=== PATIENT | male | born 1965 | race Caucasian/White ===

== ENCOUNTER 2017-04-02 11:39 | Inpatient (IN) | payer OTHER ==
[2017-04-02] MEDS ORDERED: SODIUM CHLORIDE 0.9% 1000 ML INFUS.BAG IV PRN (11:53)
[2017-04-02 12:15] LABS: VENOUS BLOOD GAS HCO3 18.7 meq/L (19-25); VENOUS PH 7.38 (7.32-7.42)
[2017-04-02] MEDS ORDERED: ACETAMINOPHEN 1000 MG/100 ML VIAL (NON FORMULARY) IVPB ONE (12:15)
[2017-04-02] MEDS ORDERED: ACETAMINOPHEN INJECTION 100 ML IVPB ONE (12:16)
[2017-04-02 12:20] LABS: MCH 30.5 pg (25.7-33.7); MEAN PLT VOLUME 8.1 fl (7.5-11.1); PLATELET COUNT 406 K/MM3 (134-434); RDW 13.4 % (11.9-15.9); WHITE BLOOD COUNT 23.6 K/mm3 (4.0-10.0)
[2017-04-02 12:36] LABS: URINE APPEARANCE SLCLOUDY; URINE BILIRUBIN NEGATIVE (NEGATIVE); URINE COLOR LTYELLOW; URINE GLUCOSE (UA) 2+ (NEGATIVE); URINE KETONE NEGATIVE (NEGATIVE); URINE NITRITE POSITIVE (NEGATIVE); URINE UROBILINOGEN NEGATIVE E.U./dl (0.2-1.0)
[2017-04-02 12:41] LABS: URINE BLOOD 2+ (NEGATIVE); URINE LEUK ESTERASE 3+ (NEGATIVE); URINE PROTEIN 2+ (NEGATIVE)
[2017-04-02 12:43] LABS: URINE BACTERIA RARE /hpf (NONE SEEN); URINE RBC 1 /hpf (0-3); URINE WBC 208 /hpf (3-5)
[2017-04-02] MEDS ORDERED: CEFTRIAXONE 2 GM in DEXTROSE 5%-WATER - 100 ML IVPB ONE (12:59)
[2017-04-02 13:05] LABS: INR 1.43 (0.82-1.09); PROTHROMBIN TIME (PATIENT) 15.8 SEC (9.98-11.88)
[2017-04-02] MEDS ORDERED: CEFTRIAXONE 100 ML IVPB ONE (13:09)
[2017-04-02 13:10] LABS: ALBUMIN 3.6 g/dl (3.4-5.0); ANION GAP 14 (8-16); CALCIUM 9.6 mg/dL (8.5-10.1); CO2 20 mmol/L (21-32)
--- NOTE | 2017-04-02 13:12 | PDOC ---
History of Present Illness - General Chief Complaint: SIRS, Suspected/Possible Stated Complaint: HIGH BLOOD SUGAR Time Seen by Provider: 04/02/17 11:53 - History of Present Illness Initial Comments: 04/02/17 13:03 CHIEF COMPLAINT: sent in from [facility], shaking, BGM 430 HISTORY OF PRESENT ILLNESS: 49 yo M with hx of unknown development delay was sent in from [facility] for c/o of "shaking" and BGM of 430. On arrival patient states he has no complaints and he "feels fine" but he "drank a lot of water." He denies any cough, sneezing, runny nose, chills, nausea, vomiting, diarrhea, or any urinary symptoms. 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 No recent travel or sick contacts. PAST MEDICAL HISTORY: unable to obtain SOCIAL HISTORY: Lives at home with mother (per staff from [facility]). ALLERGIES: unable to obtain REVIEW OF SYSTEMS - unreliable, patient with unknown development delay PHYSICAL EXAM General Appearance: Well-appearing, appropriately dressed. No apparent distress. HEENT: EOMI, PERRLA, normal ENT inspection, normal voice, TMs normal, pharynx normal. No conjunctival pallor. No photophobia, scleral icterus. Neck: Supple. Trachea midline. No tenderness, rigidity, carotid bruit, stridor , lymphadenopathy, or thyromegaly. Respiratory/Chest: Lungs CTAB. Cardiovascular: RRR. S1, S2. Gastrointestinal/Abdominal: Normal bowel sounds. Abdomen soft, non-distended. No tenderness or rebound tenderness. No organomegaly, pulsatile mass, guarding , hernia, hepatomegaly, splenomegaly. Musculoskeletal/Extremities: Normal inspection. FROM of all extremities, normal capillary refill. Pelvis Stable. No CVA tenderness. No tenderness to extremities, pedal edema, swelling, erythema or deformity. Integumentary: Appropriate color, dry, warm. 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 Fully oriented, alert. Appropriate mood/affect. Motor strength 5/5. No appreciable EOM palsy, facial droop or sensory deficit. Past History - Past Medical History Allergies/Adverse Reactions: Allergies Allergy/AdvReac Type Severity Reaction Status Date / Time No Allergy Information Allergy Verified 04/02/17 11:44 Available Home Medications: Ambulatory Orders Unobtainable [Unobtainable] 04/02/17 Diabetes: Yes - Psycho/Social/Smoking Cessation Hx Suicidal Ideation: No Smoking History: Unknown if ever smoked *Physical Exam - Vital Signs Last Vital Signs Temp Pulse Resp BP Pulse Ox 103.9 F H 105 H 20 137/89 96 04/02/17 11:44 04/02/17 11:44 04/02/17 11:44 04/02/17 11:44 04/02/17 11:44 ED Treatment Course - LABORATORY CBC & Chemistry Diagram: 04/02/17 12:00 04/02/17 12:00 - ADDITIONAL ORDERS Additional order review: Laboratory Results 04/02/17 04/02/17 12:15 12:10 VBG pH 7.38 POC VBG pCO2 32.2 L POC VBG pO2 42.2 Mixed VBG HCO3 18.7 L Urine Color Ltyellow Urine Appearance Slcloudy Urine pH 6.0 Urine Protein 2+ H Urine Glucose (UA) 2+ H Urine Ketones Negative Urine Blood 2+ H Urine Nitrite Positive Urine Bilirubin Negative Urine Urobilinogen Negative Ur Leukocyte Esterase 3+ H Urine RBC 1 Urine WBC 208 Urine Bacteria Rare 04/02/17 12:00 RBC 3.63 L MCV 87.0 MCHC 35.0 RDW 13.4 MPV 8.1 Neutrophils % Y Lymphocytes % Y - RADIOLOGY Radiology Studies Ordered: Category Date Time Status CHEST X-RAY PORTABLE* [RAD] Stat Radiology 04/02/17 11:53 Taken - Medications Given in the ED: ED Medications Discontinued Medications Generic Name Dose Route Start Last Admin Trade Name Freq PRN Reason Stop Dose Admin Acetaminophen 1,000 mg 04/02/17 12:15 04/02/17 12:15 Ofirmev Injection - IVPB 04/02/17 12:16 1,000 mg ONCE ONE Administration Medical Decision Making - Medical Decision Making 04/02/17 13:12 49 yo M with hx of unknown development delay presents to ED with "shaking" and BGM of 430. 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 VS notable for temp of 103.9F and HR of 105. Will order full sepsis workup and r/o DKA. -POC glucose -CBC, CMP, PT/INR, cardiac profile -serum acetone -UA, UCx -EKG, CXR EKG: NSR Labs: WBC 23.6 UA: WBC 208 Lactic acid: 2.5 -Ceftriaxone and Vanc IVPB CXR negative for acute findings. Will admit to hospitalist for UTI, sepsis, hyperglycemia. Discussed case with admitting attending MD Mayo, who accepts patient to inpatient services. *DC/Admit/Observation/Transfer Diagnosis at time of Disposition: Urinary tract infection Sepsis Qualifiers: Sepsis type: sepsis due to unspecified organism Qualified Code(s): A41.9 - Sepsis, unspecified organism - Discharge Dispostion Admit: Yes
[2017-04-02 13:15] LABS: ALK PHOS 92 U/L (45-117); BILIRUBIN,TOTAL 0.7 mg/dL (0.2-1.0); COCKROFT - GAULT 59.57; CREATININE 1.6 mg/dL (0.7-1.3); SGOT/AST 19 U/L (15-37); SGPT/ALT 28 U/L (12-78); TOT PROT 8.1 g/dl (6.4-8.2); TROPONIN I < 0.02 ng/ml (0.00-0.05)
[2017-04-02] MEDS ORDERED: VANCOMYCIN 1,250 MG in DEXTROSE 5%-WATER - 250 ML IVPB ONE (13:18)
[2017-04-02] MEDS ORDERED: SODIUM CHLORIDE 0.9% 500 ML INFUS.BAG IV ONE (13:19)
[2017-04-02 13:20] LABS: GLUCOSE,RANDOM 337 mg/dL (74-106)
--- NOTE | 2017-04-02 13:24 | PDOC ---
[id number] 118/79 98 04/02/17 13:05 04/02/17 12:30 04/02/17 12:30 04/02/17 12:30 04/02/17 12:30 - Physical Exam General Appearance: Yes: Nourished Neck: positive: Trachea midline Respiratory/Chest: positive: Lungs Clear, Other (faint crackles at bila bases) Cardiovascular: positive: Regular Rhythm, Regular Rate. negative: Edema, JVD Vascular Pulses: Dorsalis-Pedis (R): 4+, Doralis-Pedis (L): 4+ Gastrointestinal/Abdominal: positive: Normal Bowel Sounds, Flat, Soft. negative : Tender, Tenderness Musculoskeletal: positive: Normal Inspection. negative: CVA Tenderness Integumentary: positive: Normal Color, Dry, Warm Neurologic: positive: Alert Heart Score/ECG Review - ECG Impressions Normal ECG: Yes Non-specific ST Elevation: No Ischemic Changes: No ED Treatment Course - LABORATORY CBC & Chemistry Diagram: 04/07/17 06:30 04/07/17 06:30 - ADDITIONAL ORDERS Additional order review: Laboratory Results 04/02/17 04/02/17 04/02/17 12:15 12:10 12:00 INR PTT (Actin FS) VBG pH 7.38 POC VBG pCO2 32.2 L POC VBG pO2 42.2 Mixed VBG HCO3 18.7 L Lactic Acid 2.565 H* Urine Color Ltyellow Urine Appearance Slcloudy Urine pH 6.0 Urine Protein 2+ H Urine Glucose (UA) 2+ H Urine Ketones Negative Urine Blood 2+ H Urine Nitrite Positive Urine Bilirubin Negative Urine Urobilinogen Negative Ur Leukocyte Esterase 3+ H Urine RBC 1 Urine WBC 208 Urine Bacteria Rare 04/02/17 12:00 INR 1.43 H PTT (Actin FS) 33.0 VBG pH POC VBG pCO2 POC VBG pO2 Mixed VBG HCO3 Lactic Acid Urine Color Urine Appearance Urine pH Urine Protein Urine Glucose (UA) Urine Ketones Urine Blood Urine Nitrite Urine Bilirubin Urine Urobilinogen Ur Leukocyte Esterase Urine RBC Urine WBC Urine Bacteria 04/02/17 12:00 RBC 3.63 L MCV 87.0 MCHC 35.0 RDW 13.4 MPV 8.1 Neutrophils % Y Lymphocytes % Y - Medications Given in the ED: ED Medications Discontinued Medications Generic Name Dose Route Start Last Admin Trade Name Freq PRN Reason Stop Dose Admin Acetaminophen 1,000 mg 04/02/17 12:15 04/02/17 12:15 Ofirmev Injection - IVPB 04/02/17 12:16 1,000 mg ONCE ONE Administration Medical Decision Making - Medical Decision Making 04/02/17 13:21 49 yo male DM, mental delay attends a day program, here with someone from day program for rigors , fevers. today febrile 103. denies coughing no abd pain. no difficulty eating, no urinary symptoms, does report thirst and drinking a lot of water. no n/v no abd pain. unsure of medications. no cough no travel. on exam awake alert. no complaints. NAD. lungs cTAB no wheeze or crackle. heart RRR no m/r/g. abd soft nontender. no cva tendernss. ext wwp, 2 + peripheral pulses. differential : hypergelycemia, dehydration, dka, pna, uti, plan cxr labs cultures, fever control hydration and repeat sugar. possible insulin. will likely require admission for infection sepsis and hyperglycemia. will contact mother deirdre [phone] [facility] 04/10/17 13:20 *DC/Admit/Observation/Transfer Diagnosis at time of Disposition: Sepsis, UTI (urinary tract infection) - Discharge Dispostion Disposition: HOME Condition at time of disposition: Fair - Prescriptions
[2017-04-02] MEDS ORDERED: IBUPROFEN 800 MG/8 ML IJ IVPB ONE ×2 (13:31→13:34)
[2017-04-02 13:44] LABS: PLATELET ESTIMATE ADEQUATE (NORMAL)
[2017-04-02 16:12] LABS: CALCIUM 8.4 mg/dL (8.5-10.1); COCKROFT - GAULT 73.32; CREATININE 1.3 mg/dL (0.7-1.3)
[2017-04-02 19:02] VITALS: BMI 26.2
[2017-04-03] MEDS ORDERED: DEXTROSE 5%-0.45% SALINE 1,000 ML IV SCH (02:00)
[2017-04-03] MEDS: ACETAMINOPHEN 325 MG TABLET (FP) PO PRN ×3 (03:09→18:45)
[2017-04-03] MEDS: sitaGLIPtin PHOSPHATE 100 MG TABLET (FP) PO SCH (07:09)
[2017-04-03 08:26] LABS: BASOPHIL 0.5 % (0-2.0); EOSINOPHIL 0.9 % (0-4.5); MCH 29.9 pg (25.7-33.7); MCHC 34.4 g/dl (32.0-35.9); MEAN PLT VOLUME 7.9 fl (7.5-11.1); NEUTROPHILS 82.1 % (42.8-82.8); PLATELET COUNT 338 K/MM3 (134-434); RDW 13.9 % (11.9-15.9); WHITE BLOOD COUNT 18.2 K/mm3 (4.0-10.0)
--- NOTE | 2017-04-03 08:36 | CONSULT ---
Consultation: REQUESTING PROVIDER: Dr. Mayo CONSULT REQUEST: We have been asked to medically evaluate this patient for sepsis. HISTORY OF PRESENT ILLNESS: This is a 49 year old male with PMHx NIDDM (uncontrolled), hypertension, with developmental delay, severity and etiology unknown,who was sent over from [facility] due to patient having chills, with blood sugar over 400. Patient Lives at home with his mother, he goes to [facility] for day program. Upon arrival patient found to be tachycardic, febrile, temp 103, UA positive for LE, nitrites , many wbcs. Patient started on ceftriaxone and given one dose of vancomycin. Patient admits to dysuria on admission, that has resolved today. Patient denies fever, nausea, vomiting, diarrhea Patient denies chest pain, sob, cough REVIEW OF SYSTEMS: CONSTITUTIONAL: Positive: chills Absent: fever, diaphoresis, generalized weakness, malaise, loss of appetite, weight change HEENT: Absent: rhinorrhea, nasal congestion, throat pain, throat swelling, difficulty swallowing, mouth swelling, ear pain, eye pain, visual changes CARDIOVASCULAR: Absent: chest pain, syncope, palpitations, irregular heart rate, lightheadedness , peripheral edema RESPIRATORY: Absent: cough, shortness of breath, dyspnea with exertion, orthopnea, wheezing, stridor, hemoptysis GASTROINTESTINAL: Absent: abdominal pain, abdominal distension, nausea, vomiting, diarrhea, constipation, melena, hematochezia GENITOURINARY: Positive:dysuria Absent: frequency, urgency, hesitancy, hematuria, flank pain, genital pain MUSCULOSKELETAL: Absent: myalgia, arthralgia, joint swelling, back pain, neck pain SKIN: Absent: rash, itching, pallor HEMATOLOGIC/IMMUNOLOGIC: Absent: easy bleeding, easy bruising, lymphadenopathy, frequent infections ENDOCRINE: Absent: unexplained weight gain, unexplained weight loss, heat intolerance, cold intolerance NEUROLOGIC: Absent: headache, focal weakness or paresthesias, dizziness, unsteady gait, seizure, mental status changes, bladder or bowel incontinence PSYCHIATRIC: Absent: anxiety, depression, suicidal or homicidal ideation, hallucinations. PHYSICAL EXAMINATION Vital Signs - 24 hr 04/02/17 04/02/17 04/02/17 16:17 17:16 18:56 Temperature 98.3 F 99 F Pulse Rate 92 H Pulse Rate [ 84 Radial] Respiratory 18 Rate Blood Pressure 115/72 Blood Pressure 122/74 [Right Arm] O2 Sat by Pulse 98 98 97 Oximetry (%) 04/02/17 04/03/17 04/03/17 21:00 02:59 06:00 Temperature 101 F H 100.4 F H Pulse Rate 106 H 89 Pulse Rate [ Radial] Respiratory 18 18 18 Rate Blood Pressure 145/74 103/68 Blood Pressure [Right Arm] O2 Sat by Pulse 97 Oximetry (%) GENERAL: Awake, alert, is Haitian speaking, slow to answer, baseline mental status unknown, seems to have compnent of cognitive impairment; no acute distress HEAD: Normal with no signs of trauma. EYES: Pupils equal, round and reactive to light, extraocular movements intact, sclera anicteric, conjunctiva clear. No lid lag. EARS, NOSE, THROAT: Ears normal, nares patent, oropharynx clear without exudates. tongue dry, thick; pharynx not well visualized NECK:neck thickness, without lymphadenopathy, JVD, or masses. LUNGS: Breath sounds equal, clear to auscultation bilaterally. No wheezes, and no crackles. No accessory muscle use. HEART: Regular rate and rhythm, normal S1 and S2 without murmur, rub or gallop. ABDOMEN: Soft, nontender, not distended, normoactive bowel sounds, no guarding, no rebound, no masses. No hepatomegaly or splenomegaly. MUSCULOSKELETAL: Normal range of motion at all joints. No bony deformities or tenderness. No CVA tenderness. UPPER EXTREMITIES: 2+ pulses, warm, well-perfused. No cyanosis. No clubbing. Cap refill <2 seconds. No peripheral edema. LOWER EXTREMITIES: 2+ pulses, warm, well-perfused. No calf tenderness. No peripheral edema. NEUROLOGICAL: baseline developmental delay PSYCHIATRIC: Cooperative. Good eye contact. Appropriate mood and affect. SKIN: diaphoretic, back Laboratory Results - last 24 hr 04/03/17 04/03/17 00:29 06:31 POC Glucometer 219 174 Active Medications Generic Name Dose Route Start Last Admin Trade Name Freq PRN Reason Stop Dose Admin Acetaminophen 650 mg 04/03/17 01:50 04/03/17 03:09 Tylenol - PO 650 mg Q4H PRN Administration FEVER OR PAIN Ceftriaxone Sodium 1 gm 04/03/17 10:00 Rocephin 1gm Ivpb (Pre-Docked) IVPB DAILY QING Gemfibrozil 600 mg 04/03/17 10:00 Lopid - PO BID QING Heparin Sodium (Porcine) 5,000 unit 04/03/17 10:00 Heparin - SQ BID QING Dextrose/Sodium Chloride 1,000 mls @ 75 mls/hr 04/03/17 02:00 04/03/17 05:10 D5-1/2ns - IV 75 mls/hr ASDIR QING Administration Metformin HCl 1,000 mg 04/03/17 07:00 04/03/17 07:09 Glucophage Xr - PO 1,000 mg DAILY@0700 QING Administration Metoprolol Succinate 50 mg 04/03/17 10:00 Toprol Xl - PO DAILY QING Risperidone 3 mg 04/03/17 10:00 Risperdal - PO BID QING Sitagliptin Phosphate 100 mg 04/03/17 07:00 04/03/17 07:09 Januvia - PO 100 mg DAILY@0700 QING Administration Valsartan 80 mg 04/03/17 10:00 Diovan - PO DAILY [facility] ASSESSMENT/PLAN: This is a 49 yea old male with PMHx NIDDM, hypertension, with developmental delay, lives at home with mother, goes to [facility] for day program, sent over from [facility] due to chills and BGM >400. Patient was septic on admission most likely secondary to urinary tract infection. #Sepsis secondary to urinary tract infection: -lactic acid now wnl, trend wbc -await urine and blood cultures -continue with IV ceftriaxone 1gm qd -treat hyperglycemia for better infection control Dispo: We will continue to follow the patient. Thank you for this consultative opportunity. Visit type - Emergency Visit Emergency Visit: Yes ED Registration Date: 04/02/17 Care time: The patient presented to the Emergency Department on the above date and was hospitalized for further evaluation of their emergent condition. - New Patient This patient is new to me today: Yes Date on this admission: 04/03/17 - Critical Care Critical Care patient: No
--- NOTE | 2017-04-03 08:42 | PN ---
Teaching Attending Note Name of Resident: Ghazal Paula ATTENDING PHYSICIAN STATEMENT I saw and evaluated the patient. I reviewed the resident's note and discussed the case with the resident. I agree with the resident's findings and plan as documented. SUBJECTIVE:Patient poor historian but NAD OBJECTIVE: ASSESSMENT AND PLAN: Selected Entries 04/03/17 04/03/17 02:59 06:00 Temperature 101 F H Pulse Rate 89 Respiratory 18 Rate Blood Pressure 103/68 Lung Clear Cor S1 S2 RR Abd Soft nontender Ext No edema Laboratory Tests 04/02/17 04/02/17 04/02/17 12:00 12:15 12:48 WBC 23.6 H Hgb 11.0 L Hct 31.6 L Plt Count 406 Neutrophils % 94.0 H BUN 20 H Creatinine 1.3 Random Glucose 210 H D Calcium 8.4 L Total Bilirubin AST ALT Ur Leukocyte Esterase 3+ H Urine RBC 1 Urine WBC 208 04/03/17 06:30 WBC Hgb Hct Plt Count Neutrophils % BUN Creatinine Random Glucose Calcium Total Bilirubin Pending AST Pending ALT Pending Ur Leukocyte Esterase Urine RBC Urine WBC Assessment Fever with UTI Sepsis Diabetes Plan Cultures blood urine Ceftriaxone 1 gram daily Renal sonogram Problem List - Problems (1) Sepsis Code(s): A41.9 - SEPSIS, UNSPECIFIED ORGANISM Qualifiers: Sepsis type: sepsis due to unspecified organism Qualified Code(s): A41.9 - Sepsis, unspecified organism (2) UTI (urinary tract infection) Code(s): N39.0 - URINARY TRACT INFECTION, SITE NOT SPECIFIED (3) Diabetes Code(s): E11.9 - TYPE 2 DIABETES MELLITUS WITHOUT COMPLICATIONS
[2017-04-03] MEDS ORDERED: cefTRIAXone 1 GM/50 ML BAG (PRE-DOCKED) IVPB SCH (10:00)
[2017-04-03] MEDS ORDERED: CEFTRIAXONE 1 GM in DEXTROSE 5%-WATER - 50 ML IVPB SCH (10:00)
[2017-04-03] MEDS: risperiDONE 1 MG TABLET (FP) PO SCH ×2 (10:17→22:51)
[2017-04-03] MEDS: HEPARIN NA (PORCINE) 5,000 UNITS/ML 1ML VIAL SQ SCH ×2 (10:17→22:53)
[2017-04-03] MEDS: METOPROLOL SUCCINATE 50 MG TAB.SR.24H (FP) PO SCH (10:17)
[2017-04-03] MEDS: VALSARTAN 80 MG TABLET (UD) PO SCH (10:17)
[2017-04-03] MEDS: CEFTRIAXONE 100 ML IVPB SCH (10:18)
[2017-04-03] MEDS: GEMFIBROZIL 600 MG TABLET (FP) PO SCH ×2 (10:24→22:51)
[2017-04-03 10:26] LABS: ALBUMIN 2.7 g/dl (3.4-5.0); CALCIUM 8.7 mg/dL (8.5-10.1)
[2017-04-03 10:28] LABS: BILIRUBIN,TOTAL 0.6 mg/dL (0.2-1.0); COCKROFT - GAULT 60.5; CREATININE 1.5 mg/dL (0.7-1.3); TOT PROT 6.6 g/dl (6.4-8.2)
--- NOTE | 2017-04-03 10:57 | EKG ---
Test Reason : Blood Pressure : / mmHG Vent. Rate : 096 BPM Atrial Rate : 096 BPM P-R Int : 174 ms QRS Dur : 086 ms QT Int : 318 ms P-R-T Axes : 033 075 051 degrees QTc Int : 401 ms NORMAL SINUS RHYTHM NO PREVIOUS ECGS AVAILABLE Confirmed by JAMIL OROURKE MD ([id number]) on 04/03/2017 10:57:01 AM Referred By: Confirmed By:JAMIL OROURKE MD
--- NOTE | 2017-04-03 14:18 | HP ---
Admitting History and Physical - Admission Chief Complaint: Chills History of Present Illness: Pt is a 49 year old male with PMH significant for NIDDM (uncontrolled), HTN and developmental delay. Pt was sent from [place] ( is a day program) due to complaints of chills. In the ER pt found to be febrile to 103.9 and septic w / a heart rate of 105. His UA showed leukocytes and his WBC was 23.6 w/ a lactic acid of 2.565. 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) Cardiovascular: Yes: HTN Endocrine: Yes: Diabetes Mellitus - Advance Directives Advance Directives: Yes: Health Care Proxy - Smoking History Smoking history: Never smoked - Alcohol/Substance Use Hx Alcohol Use: No Home Medications - Allergies Allergies/Adverse Reactions: Allergies Allergy/AdvReac Type Severity Reaction Status Date / Time No Allergy Information Allergy Verified 04/02/17 11:44 Available - Home Medications Home Medications: Ambulatory Orders Gemfibrozil 600 mg PO BID 04/02/17 Metformin HCl [Metformin HCl ER] 1,000 mg PO DAILY 04/02/17 Metoprolol Succinate [Toprol Xl] 50 mg PO DAILY 04/02/17 Risperidone 3 mg PO BID 04/02/17 Sitagliptin Phosphate [Januvia] 100 mg PO DAILY 04/02/17 Valsartan 80 mg PO DAILY 04/02/17 Family Disease History - Family Disease History Family History: Unable to Obtain Review of Systems Unable to obtain ROS, reason: Due to developmental malou Physical Examination Vital Signs: Vital Signs Temperature 100.4 F H 04/03/17 06:00 Pulse Rate 89 04/03/17 06:00 Respiratory Rate 18 04/03/17 06:00 Blood Pressure 103/68 04/03/17 06:00 O2 Sat by Pulse Oximetry (%) 97 04/02/17 21:00 Constitutional: Yes: Well Nourished Eyes: Yes: WNL HENT: Yes: WNL Neck: Yes: Supple Cardiovascular: Yes: Tachycardia Respiratory: Yes: WNL, Regular, CTA Bilaterally Gastrointestinal: Yes: WNL, Normal Bowel Sounds, Soft Musculoskeletal: Yes: WNL Extremities: Yes: WNL Edema: No Neurological: Yes: Alert, Pre-Existing Deficit ...Motor Strength: WNL Labs: CBC, BMP 04/03/17 06:30 04/03/17 06:30 Problem List - Problems (1) Sepsis Assessment/Plan: Cont IV ceftriaxone Monitor cultures Trend WBC ID consult Cont IVF Code(s): A41.9 - SEPSIS, UNSPECIFIED ORGANISM Qualifiers: Sepsis type: sepsis due to unspecified organism Qualified Code(s): A41.9 - Sepsis, unspecified organism (2) Diabetes Assessment/Plan: Cont metformin/januvia Add sliding scale w/ coverage Check HgA1c Code(s): E11.9 - TYPE 2 DIABETES MELLITUS WITHOUT COMPLICATIONS (3) HTN (hypertension) Assessment/Plan: BP stable Cont diovan/metoprolol Code(s): I10 - ESSENTIAL (PRIMARY) HYPERTENSION (4) HLD (hyperlipidemia) Assessment/Plan: Cont lopid Code(s): E78.5 - HYPERLIPIDEMIA, UNSPECIFIED
[2017-04-03] MEDS ORDERED: SODIUM CHLORIDE 0.45% 1,000 ML IV SCH (20:45)
[2017-04-03] MEDS: INSULIN SLIDING SCALE (NOVOLOG) 1 VIAL SQ SCH (22:53)
[2017-04-04] MEDS: sitaGLIPtin PHOSPHATE 100 MG TABLET (FP) PO SCH (06:29)
[2017-04-04] MEDS: INSULIN SLIDING SCALE (NOVOLOG) 1 VIAL SQ SCH ×4 (06:30→22:18)
[2017-04-04] MEDS: METOPROLOL SUCCINATE 50 MG TAB.SR.24H (FP) PO SCH (09:40)
[2017-04-04] MEDS: GEMFIBROZIL 600 MG TABLET (FP) PO SCH ×2 (09:40→21:56)
[2017-04-04] MEDS: risperiDONE 1 MG TABLET (FP) PO SCH ×2 (09:40→22:02)
[2017-04-04] MEDS: VALSARTAN 80 MG TABLET (UD) PO SCH (09:40)
[2017-04-04] MEDS: CEFTRIAXONE 100 ML IVPB SCH (09:40)
[2017-04-04] MEDS: HEPARIN NA (PORCINE) 5,000 UNITS/ML 1ML VIAL SQ SCH ×2 (09:40→22:02)
[2017-04-04] MEDS: ACETAMINOPHEN 325 MG TABLET (FP) PO PRN ×2 (09:47→22:02)
[2017-04-04] MEDS ORDERED: INSULIN (NOVOLOG) ASPART 100 UNITS/ML 10ML VIAL ONE ×2 (10:56→21:04)
--- NOTE | 2017-04-04 11:24 | PN ---
Progress Note, Physician History of Present Illness: OOB in chair No complaints Denies dysuria/ hematuria Remains febrile WBC improved - Current Medication List Current Medications: Active Medications Acetaminophen (Tylenol -) 650 mg PO Q4H PRN PRN Reason: FEVER OR PAIN Last Admin: 04/04/17 09:47 Dose: 650 mg Gemfibrozil (Lopid -) 600 mg PO BID [facility] Last Admin: 04/04/17 09:40 Dose: 600 mg Heparin Sodium (Porcine) (Heparin -) 5,000 unit SQ BID [facility] Last Admin: 04/04/17 09:40 Dose: 5,000 unit Ceftriaxone Sodium (Rocephin 2gm Ivpb (Pre-Docked)) 100 mls @ 200 mls/hr IVPB DAILY [facility] Last Admin: 04/04/17 09:40 Dose: 200 mls/hr Sodium Chloride (1/2 Normal Saline) 1,000 mls @ 50 mls/hr IV ASDIR [facility] Stop: 04/04/17 20:42 Last Admin: 04/03/17 20:52 Dose: 50 mls/hr Insulin Aspart (Novolog Vial Sliding Scale -) 1 vial SQ ACHS [facility] PRN Reason: Protocol Last Admin: 04/04/17 06:30 Dose: 2 units Metformin HCl (Glucophage Xr -) 1,000 mg PO DAILY@0700 [facility] Last Admin: 04/04/17 06:29 Dose: 1,000 mg Metoprolol Succinate (Toprol Xl -) 50 mg PO DAILY [facility] Last Admin: 04/04/17 09:40 Dose: 50 mg Risperidone (Risperdal -) 3 mg PO BID [facility] Last Admin: 04/04/17 09:40 Dose: 3 mg Sitagliptin Phosphate (Januvia -) 100 mg PO DAILY@0700 [facility] Last Admin: 04/04/17 06:29 Dose: 100 mg Valsartan (Diovan -) 80 mg PO DAILY [facility] Last Admin: 04/04/17 09:40 Dose: 80 mg - Objective Vital Signs: Vital Signs Temperature 100.2 F H 04/04/17 08:20 Pulse Rate 88 04/04/17 08:20 Respiratory Rate 16 04/04/17 09:00 Blood Pressure 130/80 04/04/17 08:20 O2 Sat by Pulse Oximetry (%) 97 04/04/17 09:00 Constitutional: Yes: No Distress Eyes: Yes: Conjunctiva Clear Cardiovascular: Yes: Regular Rate and Rhythm, S1, S2 Respiratory: Yes: CTA Bilaterally Gastrointestinal: Yes: Normal Bowel Sounds, Soft. No: Tenderness Labs: CBC, BMP 04/03/17 06:30 04/03/17 06:30 INR, PTT INR 1.43 (0.82-1.09) H 04/02/17 12:00 Assessment/Plan UTI/ Sepsis secondry to UTI Fever/ leukocytosis Azotemia Await c/s results Continue ceftriaxone
[2017-04-04 20:34] LABS: BASOPHIL 1.1 % (0-2.0); EOSINOPHIL 2.3 % (0-4.5); MCH 29.5 pg (25.7-33.7); MCHC 33.6 g/dl (32.0-35.9); MEAN PLT VOLUME 8.5 fl (7.5-11.1); NEUTROPHILS 78.3 % (42.8-82.8); PLATELET COUNT 407 K/MM3 (134-434); RDW 13.9 % (11.9-15.9); WHITE BLOOD COUNT 11.4 K/mm3 (4.0-10.0)
[2017-04-04 21:01] LABS: ALBUMIN 2.7 g/dl (3.4-5.0); BILIRUBIN,TOTAL 0.2 mg/dL (0.2-1.0); COCKROFT - GAULT 64.9; CREATININE 1.4 mg/dL (0.7-1.3)
--- NOTE | 2017-04-04 21:15 | PN ---
Progress Note, Physician History of Present Illness: No new changes Tmax 100.2 - Current Medication List Current Medications: Active Medications Acetaminophen (Tylenol -) 650 mg PO Q4H PRN PRN Reason: FEVER OR PAIN Last Admin: 04/04/17 09:47 Dose: 650 mg Gemfibrozil (Lopid -) 600 mg PO BID [facility] Last Admin: 04/04/17 09:40 Dose: 600 mg Heparin Sodium (Porcine) (Heparin -) 5,000 unit SQ BID [facility] Last Admin: 04/04/17 09:40 Dose: 5,000 unit Ceftriaxone Sodium (Rocephin 2gm Ivpb (Pre-Docked)) 100 mls @ 200 mls/hr IVPB DAILY [facility] Last Admin: 04/04/17 09:40 Dose: 200 mls/hr Insulin Aspart (Novolog Vial Sliding Scale -) 1 vial SQ ACHS [facility] PRN Reason: Protocol Last Admin: 04/04/17 17:03 Dose: 4 units Metformin HCl (Glucophage Xr -) 1,000 mg PO DAILY@0700 [facility] Last Admin: 04/04/17 06:29 Dose: 1,000 mg Metoprolol Succinate (Toprol Xl -) 50 mg PO DAILY [facility] Last Admin: 04/04/17 09:40 Dose: 50 mg Risperidone (Risperdal -) 3 mg PO BID [facility] Last Admin: 04/04/17 09:40 Dose: 3 mg Sitagliptin Phosphate (Januvia -) 100 mg PO DAILY@0700 [facility] Last Admin: 04/04/17 06:29 Dose: 100 mg Valsartan (Diovan -) 80 mg PO DAILY [facility] Last Admin: 04/04/17 09:40 Dose: 80 mg - Objective Vital Signs: Vital Signs Temperature 98.1 F 04/04/17 17:47 Pulse Rate 102 H 04/04/17 17:47 Respiratory Rate 17 04/04/17 17:47 Blood Pressure 128/85 04/04/17 17:47 O2 Sat by Pulse Oximetry (%) 97 04/04/17 09:00 HENT: Yes: WNL Neck: Yes: Supple Cardiovascular: Yes: WNL, Regular Rate and Rhythm Respiratory: Yes: WNL, Regular, CTA Bilaterally Gastrointestinal: Yes: WNL, Normal Bowel Sounds, Soft Extremities: Yes: WNL Edema: No Labs: CBC, BMP 04/04/17 19:49 04/04/17 19:49 INR, PTT INR 1.43 (0.82-1.09) H 04/02/17 12:00 Problem List - Problems (1) Sepsis Assessment/Plan: Pt still febril but temp curve has decreased WNC decreased also Sepsis due to bacteremia/UTI from E.coli Cont IV ceftriaxone Trend WBC Cont IVF Code(s): A41.9 - SEPSIS, UNSPECIFIED ORGANISM Qualifiers: Sepsis type: sepsis due to unspecified organism Qualified Code(s): A41.9 - Sepsis, unspecified organism (2) Diabetes Assessment/Plan: Cont metformin/januvia Add sliding scale w/ coverage Check HgA1c Code(s): E11.9 - TYPE 2 DIABETES MELLITUS WITHOUT COMPLICATIONS (3) HTN (hypertension) Assessment/Plan: BP stable Cont diovan/metoprolol Code(s): I10 - ESSENTIAL (PRIMARY) HYPERTENSION (4) HLD (hyperlipidemia) Assessment/Plan: Cont lopid Code(s): E78.5 - HYPERLIPIDEMIA, UNSPECIFIED
[2017-04-05] MEDS: INSULIN SLIDING SCALE (NOVOLOG) 1 VIAL SQ SCH ×4 (06:18→21:43)
[2017-04-05] MEDS: sitaGLIPtin PHOSPHATE 100 MG TABLET (FP) PO SCH (06:19)
[2017-04-05 08:31] LABS: BASOPHIL 0.8 % (0-2.0); EOSINOPHIL 2.4 % (0-4.5); MCHC 34.9 g/dl (32.0-35.9); NEUTROPHILS 74.1 % (42.8-82.8); PLATELET COUNT 444 K/MM3 (134-434); RDW 13.9 % (11.9-15.9); WHITE BLOOD COUNT 12.2 K/mm3 (4.0-10.0)
[2017-04-05] MEDS: risperiDONE 1 MG TABLET (FP) PO SCH ×2 (09:12→21:43)
[2017-04-05] MEDS: CEFTRIAXONE 100 ML IVPB SCH (09:12)
[2017-04-05] MEDS: GEMFIBROZIL 600 MG TABLET (FP) PO SCH ×2 (09:13→21:43)
[2017-04-05] MEDS: HEPARIN NA (PORCINE) 5,000 UNITS/ML 1ML VIAL SQ SCH ×2 (09:13→21:43)
[2017-04-05] MEDS: VALSARTAN 80 MG TABLET (UD) PO SCH (09:13)
[2017-04-05] MEDS: METOPROLOL SUCCINATE 50 MG TAB.SR.24H (FP) PO SCH (09:14)
[2017-04-05] MEDS ORDERED: PT OWN MED DRAWER 7, Y5N ONE (17:20)
--- NOTE | 2017-04-05 22:00 | PN ---
Progress Note, Physician History of Present Illness: No new changes - Current Medication List Current Medications: Active Medications Acetaminophen (Tylenol -) 650 mg PO Q4H PRN PRN Reason: FEVER OR PAIN Last Admin: 04/04/17 22:02 Dose: 650 mg Gemfibrozil (Lopid -) 600 mg PO BID [facility] Last Admin: 04/05/17 21:43 Dose: 600 mg Heparin Sodium (Porcine) (Heparin -) 5,000 unit SQ BID [facility] Last Admin: 04/05/17 21:43 Dose: 5,000 unit Ceftriaxone Sodium (Rocephin 2gm Ivpb (Pre-Docked)) 100 mls @ 200 mls/hr IVPB DAILY [facility] Last Admin: 04/05/17 09:12 Dose: 200 mls/hr Insulin Aspart (Novolog Vial Sliding Scale -) 1 vial SQ ACHS [facility] PRN Reason: Protocol Last Admin: 04/05/17 21:43 Dose: 4 units Metformin HCl (Glucophage Xr -) 1,000 mg PO DAILY@0700 [facility] Last Admin: 04/05/17 06:17 Dose: 1,000 mg Metoprolol Succinate (Toprol Xl -) 50 mg PO DAILY [facility] Last Admin: 04/05/17 09:14 Dose: 50 mg Risperidone (Risperdal -) 3 mg PO BID [facility] Last Admin: 04/05/17 21:43 Dose: 3 mg Sitagliptin Phosphate (Januvia -) 100 mg PO DAILY@0700 [facility] Last Admin: 04/05/17 06:19 Dose: 100 mg Valsartan (Diovan -) 80 mg PO DAILY [facility] Last Admin: 04/05/17 09:13 Dose: 80 mg - Objective Vital Signs: Vital Signs Temperature 98.9 F 04/05/17 16:30 Pulse Rate 88 04/05/17 16:30 Respiratory Rate 20 04/05/17 16:30 Blood Pressure 128/89 04/05/17 16:30 O2 Sat by Pulse Oximetry (%) 97 04/05/17 09:00 Constitutional: Yes: No Distress HENT: Yes: WNL Neck: Yes: Supple Cardiovascular: Yes: WNL, Regular Rate and Rhythm Respiratory: Yes: WNL, Regular, CTA Bilaterally Gastrointestinal: Yes: WNL, Normal Bowel Sounds, Soft Labs: CBC, BMP 04/05/17 06:45 04/04/17 19:49 INR, PTT INR 1.43 (0.82-1.09) H 04/02/17 12:00 Problem List - Problems (1) Sepsis Code(s): A41.9 - SEPSIS, UNSPECIFIED ORGANISM Qualifiers: Sepsis type: sepsis due to unspecified organism Qualified Code(s): A41.9 - Sepsis, unspecified organism (2) Diabetes Code(s): E11.9 - TYPE 2 DIABETES MELLITUS WITHOUT COMPLICATIONS (3) HTN (hypertension) Code(s): I10 - ESSENTIAL (PRIMARY) HYPERTENSION (4) HLD (hyperlipidemia) Code(s): E78.5 - HYPERLIPIDEMIA, UNSPECIFIED
[2017-04-06] MEDS: sitaGLIPtin PHOSPHATE 100 MG TABLET (FP) PO SCH (06:27)
[2017-04-06] MEDS: INSULIN SLIDING SCALE (NOVOLOG) 1 VIAL SQ SCH ×4 (06:28→22:19)
[2017-04-06] MEDS: CEFTRIAXONE 100 ML IVPB SCH (10:13)
[2017-04-06] MEDS: HEPARIN NA (PORCINE) 5,000 UNITS/ML 1ML VIAL SQ SCH ×2 (10:13→22:17)
[2017-04-06] MEDS: GEMFIBROZIL 600 MG TABLET (FP) PO SCH ×2 (10:13→22:17)
[2017-04-06] MEDS: risperiDONE 1 MG TABLET (FP) PO SCH ×2 (10:13→22:17)
[2017-04-06] MEDS: VALSARTAN 80 MG TABLET (UD) PO SCH (10:13)
[2017-04-06] MEDS: METOPROLOL SUCCINATE 50 MG TAB.SR.24H (FP) PO SCH (10:13)
--- NOTE | 2017-04-06 10:58 | PN ---
Progress Note, Physician Chief Complaint: Alert NAD Ceftriaxone day 4 Rx - Current Medication List Current Medications: Active Medications Acetaminophen (Tylenol -) 650 mg PO Q4H PRN PRN Reason: FEVER OR PAIN Last Admin: 04/04/17 22:02 Dose: 650 mg Gemfibrozil (Lopid -) 600 mg PO BID [facility] Last Admin: 04/06/17 10:13 Dose: 600 mg Heparin Sodium (Porcine) (Heparin -) 5,000 unit SQ BID [facility] Last Admin: 04/06/17 10:13 Dose: 5,000 unit Ceftriaxone Sodium (Rocephin 2gm Ivpb (Pre-Docked)) 100 mls @ 200 mls/hr IVPB DAILY [facility] Last Admin: 04/06/17 10:13 Dose: 200 mls/hr Insulin Aspart (Novolog Vial Sliding Scale -) 1 vial SQ ACHS [facility] PRN Reason: Protocol Last Admin: 04/06/17 06:28 Dose: 2 units Metformin HCl (Glucophage Xr -) 1,000 mg PO DAILY@0700 [facility] Last Admin: 04/06/17 06:26 Dose: 1,000 mg Metoprolol Succinate (Toprol Xl -) 50 mg PO DAILY [facility] Last Admin: 04/06/17 10:13 Dose: 50 mg Risperidone (Risperdal -) 3 mg PO BID [facility] Last Admin: 04/06/17 10:13 Dose: 3 mg Sitagliptin Phosphate (Januvia -) 100 mg PO DAILY@0700 [facility] Last Admin: 04/06/17 06:27 Dose: 100 mg Valsartan (Diovan -) 80 mg PO DAILY [facility] Last Admin: 04/06/17 10:13 Dose: 80 mg - Objective Vital Signs: Vital Signs Temperature 97.5 F L 04/06/17 04:00 Pulse Rate 72 04/06/17 04:00 Respiratory Rate 20 04/06/17 04:00 Blood Pressure 114/68 04/06/17 04:00 O2 Sat by Pulse Oximetry (%) 97 04/05/17 21:00 Constitutional: Yes: Well Nourished, No Distress Cardiovascular: Yes: Regular Rate and Rhythm, S1, S2 Respiratory: Yes: WNL, Regular, CTA Bilaterally Gastrointestinal: Yes: WNL, Normal Bowel Sounds, Soft. No: Tenderness, Tenderness, Epigastrium Labs: CBC, BMP 04/05/17 06:45 04/04/17 19:49 INR, PTT INR 1.43 (0.82-1.09) H 04/02/17 12:00 Problem List - Problems (1) Sepsis Code(s): A41.9 - SEPSIS, UNSPECIFIED ORGANISM Qualifiers: Sepsis type: sepsis due to unspecified organism Qualified Code(s): A41.9 - Sepsis, unspecified organism (2) UTI (urinary tract infection) Code(s): N39.0 - URINARY TRACT INFECTION, SITE NOT SPECIFIED (3) Diabetes Code(s): E11.9 - TYPE 2 DIABETES MELLITUS WITHOUT COMPLICATIONS Assessment/Plan Microbiology 04/02/17 12:48 Blood - Peripheral Venous Blood Culture - Final Escherichia Coli 04/02/17 12:15 Urine - Urine Clean Catch Urine Culture - Final Escherichia Coli Laboratory Tests 04/02/17 04/04/17 04/05/17 12:15 19:49 06:45 WBC 12.2 H Hgb 10.1 L Hct 28.9 L Plt Count 444 H BUN 20 H Creatinine 1.4 H Creat Clearance w eGFR 53.43 Urine Protein 2+ H Ur Leukocyte Esterase 3+ H Urine RBC 1 Urine WBC 208 Assessment E Coli bacteremia UTI better pansensitive E Coli DM CKD Plan Switch to oral therapy Levofloxacin 250mg daily 7 days Consider nephrology evaluation Jf ORTEGA
[2017-04-06] MEDS ORDERED: INSULIN (NOVOLOG) ASPART 100 UNITS/ML 10ML VIAL ONE (12:10)
[2017-04-06] MEDS: LEVOFLOXACIN 250 MG TABLET (FP) PO SCH (12:30)
--- NOTE | 2017-04-06 21:53 | PN ---
Progress Note, Physician - Current Medication List Current Medications: Active Medications Acetaminophen (Tylenol -) 650 mg PO Q4H PRN PRN Reason: FEVER OR PAIN Last Admin: 04/04/17 22:02 Dose: 650 mg Gemfibrozil (Lopid -) 600 mg PO BID [facility] Last Admin: 04/06/17 10:13 Dose: 600 mg Heparin Sodium (Porcine) (Heparin -) 5,000 unit SQ BID [facility] Last Admin: 04/06/17 10:13 Dose: 5,000 unit Insulin Aspart (Novolog Vial Sliding Scale -) 1 vial SQ ACHS [facility] PRN Reason: Protocol Last Admin: 04/06/17 18:27 Dose: 4 units Levofloxacin (Levaquin -) 250 mg PO DAILY@0600 [facility] Last Admin: 04/06/17 12:30 Dose: 250 mg Metformin HCl (Glucophage Xr -) 1,000 mg PO DAILY@0700 [facility] Last Admin: 04/06/17 06:26 Dose: 1,000 mg Metoprolol Succinate (Toprol Xl -) 50 mg PO DAILY [facility] Last Admin: 04/06/17 10:13 Dose: 50 mg Risperidone (Risperdal -) 3 mg PO BID [facility] Last Admin: 04/06/17 10:13 Dose: 3 mg Sitagliptin Phosphate (Januvia -) 100 mg PO DAILY@0700 [facility] Last Admin: 04/06/17 06:27 Dose: 100 mg Valsartan (Diovan -) 80 mg PO DAILY [facility] Last Admin: 04/06/17 10:13 Dose: 80 mg - Objective Vital Signs: Vital Signs Temperature 97.6 F 04/06/17 16:25 Pulse Rate 74 04/06/17 16:25 Respiratory Rate 20 04/06/17 20:35 Blood Pressure 144/93 04/06/17 16:25 O2 Sat by Pulse Oximetry (%) 97 04/06/17 20:35 Constitutional: Yes: Well Nourished HENT: Yes: WNL Neck: Yes: Supple Cardiovascular: Yes: WNL, Regular Rate and Rhythm Respiratory: Yes: WNL, Regular, CTA Bilaterally Gastrointestinal: Yes: WNL, Normal Bowel Sounds, Soft Labs: CBC, BMP 04/05/17 06:45 04/04/17 19:49 INR, PTT INR 1.43 (0.82-1.09) H 04/02/17 12:00 Problem List - Problems (1) Sepsis Assessment/Plan: Pt afebrile DC planning in am Sepsis due to bacteremia/UTI from E.coli Cont IV ceftriaxone Trend WBC Code(s): A41.9 - SEPSIS, UNSPECIFIED ORGANISM Qualifiers: Sepsis type: sepsis due to unspecified organism Qualified Code(s): A41.9 - Sepsis, unspecified organism (2) Diabetes Assessment/Plan: HgA1c was elevated 8.1 [place] increase metformin dose Cont januvia Cont sliding scale w/ coverage Code(s): E11.9 - TYPE 2 DIABETES MELLITUS WITHOUT COMPLICATIONS (3) HTN (hypertension) Assessment/Plan: BP stable Cont diovan/metoprolol Code(s): I10 - ESSENTIAL (PRIMARY) HYPERTENSION (4) HLD (hyperlipidemia) Assessment/Plan: Cont lopid Code(s): E78.5 - HYPERLIPIDEMIA, UNSPECIFIED
[2017-04-07] MEDS ORDERED: PT OWN MED DRAWER 7, Y5N ONE (05:15)
[2017-04-07] MEDS: INSULIN SLIDING SCALE (NOVOLOG) 1 VIAL SQ SCH ×2 (06:19→12:45)
[2017-04-07] MEDS: LEVOFLOXACIN 250 MG TABLET (FP) PO SCH (06:19)
[2017-04-07] MEDS: sitaGLIPtin PHOSPHATE 100 MG TABLET (FP) PO SCH (06:20)
[2017-04-07] MEDS ORDERED: metFORMIN HCL 500 MG TABLET (FP) PO SCH (07:00)
[2017-04-07 07:48] LABS: MCH 29.9 pg (25.7-33.7); MCHC 34.7 g/dl (32.0-35.9); MEAN CELL VOLUME 86.2 fl (80-96); MEAN PLT VOLUME 7.8 fl (7.5-11.1); PLATELET COUNT 505 K/MM3 (134-434); RDW 13.9 % (11.9-15.9); WHITE BLOOD COUNT 11.4 K/mm3 (4.0-10.0)
[2017-04-07 08:17] LABS: ALBUMIN 3.1 g/dl (3.4-5.0); ANION GAP 17 (8-16); BILIRUBIN,TOTAL 0.3 mg/dL (0.2-1.0); CALCIUM 9.6 mg/dL (8.5-10.1); CO2 17 mmol/L (21-32); COCKROFT - GAULT 75.7; CREATININE 1.2 mg/dL (0.7-1.3); GLUCOSE,RANDOM 158 mg/dL (74-106); SGOT/AST 17 U/L (15-37); SGPT/ALT 25 U/L (12-78)
[2017-04-07 08:18] LABS: ALK PHOS 91 U/L (45-117)
[2017-04-07] MEDS: HEPARIN NA (PORCINE) 5,000 UNITS/ML 1ML VIAL SQ SCH (09:52)
[2017-04-07] MEDS: GEMFIBROZIL 600 MG TABLET (FP) PO SCH (09:52)
[2017-04-07] MEDS: METOPROLOL SUCCINATE 50 MG TAB.SR.24H (FP) PO SCH (09:52)
[2017-04-07] MEDS: VALSARTAN 80 MG TABLET (UD) PO SCH (09:52)
[2017-04-07] MEDS: risperiDONE 1 MG TABLET (FP) PO SCH (09:52)
[2017-04-07] MEDS: ACETAMINOPHEN 325 MG TABLET (FP) PO PRN (09:59)
[2017-04-07 11:36] VITALS: BP 116/87; PULSE 102; TEMP 98.8
[2017-04-07 12:13] LABS: METAMYELOCYTE 5 % (0-2); PLATELET ESTIMATE INCREASED (NORMAL)
== END 2017-04-07 15:11 | disposition home or self-care (01) | DRG 872 ==
LOC: JER 11:39 → JERBED 13:59 → EDBD 13:59 → J8W 17:48
PROVIDERS: ADMIT Internal Medicine; ATTEND Internal Medicine
DX: A41.9 Sepsis, unspecified organism (principal); N39.0 Urinary tract infection, site not specified; B96.20 Unspecified Escherichia coli [E. coli] as the cause of diseases classified elsewhere; E11.9 Type 2 diabetes mellitus without complications; E78.5 Hyperlipidemia, unspecified; I10 Essential (primary) hypertension; D72.829 Elevated white blood cell count, unspecified; R62.50 Unspecified lack of expected normal physiological development in childhood
CPT/HCPCS: 36415; 71010-TC; 76775-TC; 76856-TC; 80048; 80053; 81003; 81015; 82009; 82550; 82553; 82803; 83036; 83605; 84484; 85025; 85610; 85730; 86850; 86900; 86901; 87040; 87086; 87186; 93005; 93010; 99285-25; J1644; J2794